=== PATIENT | female | born 1965 | race African-American/Black ===

== ENCOUNTER 2016-08-21 21:03 | Emergency (ER) | payer OTHER ==
--- NOTE | 2016-08-21 21:39 | ER Document Report ---
ED Medical Screen (RME) - General Stated Complaint: ABNORMAL LABS Time seen by provider: 21:35 Mode of Arrival: Ambulatory Information source: Patient Notes: 51 yo female with 3 month history of nausea and increasing liver enzymes now has yellow eyes and increased nausea. She's had a 10 pound weight loss in 3 months. Her father had liver cancer and her 1/2 sister of liver cancer. Occasional wine. No history of hepatitis and that has not been drawn yet. No abdominal imaging has been done. Her primary care doctor cannot feel an enlarged liver. Cholecystectomy 5 years ago and appendectomy 2004. I have greeted and performed a rapid initial assessment of this patient. A comprehensive ED assessment, evaluation of the patient, analysis of test results , and completion of the medical decision making process will be contacted by additional ED providers. TRAVEL OUTSIDE OF THE [place] IN LAST 30 DAYS: No - Related Data Allergies/Adverse Reactions: BRENDAN Inhibitors [Brendan Inhibitors] Allergy (Severe, Verified 08/21/16 21:33) Severe cough ACEINHIBITORS [BRENDAN Inhibitors] Allergy (Severe, Verified 08/21/16 21:33) Severe cough erythromycin base [Erythromycin Base] Allergy (Severe, Verified 08/21/16 21:33) Shortness of Breath, Hives, N&V Macrolide Antibiotics Allergy (Severe, Verified 08/21/16 21:33) Hives, N&V, diarrhea Past Medical History - Past Medical History Cardiac Medical History: Reports: Hx Hypercholesterolemia, Hx Hypertension - Hx of but No meds x 3 yr Denies: Hx Coronary Artery Disease, Hx Heart Attack Pulmonary Medical History: Reports: Hx Bronchitis - x3 yrs ago Denies: Hx Asthma, Hx COPD, Hx Pneumonia Neurological Medical History: Denies: Hx Cerebrovascular Accident, Hx Seizures Endocrine Medical History: Reports: Hx Diabetes Mellitus Type 2 Musculoskeltal Medical History: Denies Hx Arthritis Past Surgical History: Reports: Hx Appendectomy, Hx Cholecystectomy, Hx Hysterectomy, Hx Kidney (Renal Surgery) - donated kidney, Hx Orthopedic Surgery - left knee, Hx Tonsillectomy. Denies: Hx Pacemaker - Immunizations Hx Diphtheria, Pertussis, Tetanus Vaccination: Yes - 09/2008 after dog bite - ? Tetanus only
[2016-08-21 22:05] LABS: ABSOLUTE BASOPHILS # (AUTO) 0.1 10^3/uL (0.0-0.2); ABSOLUTE EOSINOPHILS # (AUTO) 0.7 10^3/uL (0.0-0.6); ABSOLUTE LYMPHOCYTES (AUTO) 2.1 10^3/uL (0.5-4.7); ABSOLUTE MONOCYTES (AUTO) 0.9 10^3/uL (0.1-1.4); ABSOLUTE NEUT (AUTO) 3.6 10^3/uL (1.7-8.2); BASOPHILS % (AUTO) 0.8 % (0-2); EOSINOPHILS % (AUTO) 9.6 % (0-6); HEMATOCRIT 43.5 % (36.0-47.0); HEMOGLOBIN 14.4 g/dL (12.0-15.5); HGB HCT DIFFERENCE -0.3; LYMPHOCYTES % (AUTO) 28.1 % (13-45); MEAN CORPUSCULAR HEMOGLOBIN 31.2 pg (27.0-33.4); MEAN CORPUSCULAR HGB CONC 33.2 g/dL (32.0-36.0); MEAN CORPUSCULAR VOLUME 94 fl (80-97); MONOCYTES % (AUTO) 12.7 % (3-13); RED BLOOD COUNT 4.64 10^6/uL (3.72-5.28); RED CELL DISTRIBUTION WIDTH 14.6 % (11.5-14.0); SEGMENTED NEUTROPHILS % (AUTO) 48.8 % (42-78); WHITE BLOOD COUNT 7.3 10^3/uL (4.0-10.5)
[2016-08-21 22:09] LABS: APPEARANCE,URINE SLIGHTLY-CLOUDY; BILIRUBIN,URINE NEGATIVE (NEGATIVE); GLUCOSE, URINE NEGATIVE (NEGATIVE); KETONES,URINE NEGATIVE (NEGATIVE); LEUKOCYTE ESTERASE,URINE TRACE (NEGATIVE); NITRITE,URINE NEGATIVE (NEGATIVE); PROTEIN,URINE NEGATIVE (NEGATIVE)
[2016-08-21 22:16] LABS: ALBUMIN 4.5 g/dL (3.5-5.0); ALKALINE PHOSPHATASE 128 U/L (38-126); ANION GAP 8 (5-19); BILIRUBIN,DIRECT 1.6 mg/dL (0.0-0.3); BILIRUBIN,TOTAL 4.5 mg/dL (0.2-1.3); BLOOD UREA NITROGEN 8 mg/dL (7-20); CALCIUM 9.9 mg/dL (8.4-10.2); CARBON DIOXIDE 31 mmol/L (22-30); CHLORIDE 103 mmol/L (98-107); CREATININE RESULT 0.69 mg/dL (0.52-1.25); GLUCOSE 122 mg/dL (75-110); LIPASE 1059.4 U/L (23-300); POTASSIUM 3.6 mmol/L (3.6-5.0); SODIUM 142.1 mmol/L (137-145); TOTAL PROTEIN 7.7 g/dL (6.3-8.2)
[2016-08-21 22:45] LABS: ALANINE AMINOTRANSFERASE 2919 U/L (9-52); ASPARTATE AMINO TRANSFERASE 1378 U/L (14-36)
[2016-08-21] MEDS ORDERED: MORPHINE SULFATE 10 MG/ML INJ IV ONE ×2 (23:18)
[2016-08-21] MEDS ORDERED: PROMETHAZINE HCL INJ 25 MG/1 ML VIAL IM ONE (23:18)
--- NOTE | 2016-08-21 23:21 | ER Document Report ---
ED GI/ - General Chief Complaint: Abnormal Lab Results Stated Complaint: ABNORMAL LABS Time seen by provider: 23:15 Mode of Arrival: Ambulatory Notes: Patient is a 51-year-old female that comes emergency department for chief complaint of nausea, yellow eyes, pain in her right to upper abdomen. Patient states that she had abnormal liver enzymes and was planning to follow-up with her primary care Dr. Hightower for additional workup, she was told that if she developed new symptoms to come to emergency department. Symptoms started today. Patient denies fever, vomiting, reports normal bowel movements. Past medical history of type II diabetes, hypertension, cholecystectomy, appendectomy. Patient states that her father from pancreatic cancer. TRAVEL OUTSIDE OF THE [place] IN LAST 30 DAYS: No - Related Data Allergies/Adverse Reactions: BRENDAN Inhibitors [Brendan Inhibitors] Allergy (Severe, Verified 08/21/16 23:11) Severe cough ACEINHIBITORS [BRENDAN Inhibitors] Allergy (Severe, Verified 08/21/16 23:11) Severe cough erythromycin base [Erythromycin Base] Allergy (Severe, Verified 08/21/16 23:11) Shortness of Breath, Hives, N&V Macrolide Antibiotics Allergy (Severe, Verified 08/21/16 23:11) Hives, N&V, diarrhea Home Medications: Current Home Medications Venlafaxine HCl [Venlafaxine HCl ER] 37.5 mg PO DAILY 08/21/16 [History] Past Medical History - General Information source: Patient - Social History Smoking Status: Never Smoker Frequency of alcohol use: None Drug Abuse: None Lives with: Family Family History: Reviewed & Not Pertinent - Past Medical History Cardiac Medical History: Reports: Hx Hypercholesterolemia, Hx Hypertension - Hx of but No meds x 3 yr Denies: Hx Coronary Artery Disease, Hx Heart Attack Pulmonary Medical History: Reports: Hx Bronchitis - x3 yrs ago Denies: Hx Asthma, Hx COPD, Hx Pneumonia Neurological Medical History: Denies: Hx Cerebrovascular Accident, Hx Seizures Endocrine Medical History: Reports: Hx Diabetes Mellitus Type 2 Renal/ Medical History: Denies: Hx Peritoneal Dialysis Musculoskeltal Medical History: Denies Hx Arthritis Past Surgical History: Reports: Hx Appendectomy, Hx Cholecystectomy, Hx Hysterectomy, Hx Kidney (Renal Surgery) - LEFT donated kidney, Hx Orthopedic Surgery - left knee, Hx Tonsillectomy. Denies: Hx Pacemaker - Immunizations Hx Diphtheria, Pertussis, Tetanus Vaccination: Yes - 09/2008 after dog bite - ? Tetanus only Review of Systems - Review of Systems Constitutional: No symptoms reported EENT: No symptoms reported Cardiovascular: No symptoms reported Respiratory: No symptoms reported Gastrointestinal: See HPI Genitourinary: No symptoms reported Female Genitourinary: No symptoms reported Musculoskeletal: No symptoms reported Skin: No symptoms reported Hematologic/Lymphatic: No symptoms reported Neurological/Psychological: No symptoms reported Physical Exam - Vital signs Vitals: Resp Pulse Ox 15 99 08/21/16 23:08 08/21/16 23:08 Interpretation: Normal - General General appearance: Anxious In distress: None - Patient appears to be nervous but does not appear to be in any severe distress - HEENT Head: Normocephalic, Atraumatic Eyes: Normal Pupils: PERRL - Respiratory Respiratory status: No respiratory distress Chest status: Nontender Breath sounds: Normal Chest palpation: Normal - Cardiovascular Rhythm: Regular Heart sounds: Normal auscultation Murmur: No - Abdominal Inspection: Normal Distension: No distension Bowel sounds: Normal Tenderness: Tender - There is tenderness in the epigastric and right upper quadrant, otherwise unremarkable abdomen Organomegaly: No organomegaly - Back Back: Normal, Nontender - Extremities General upper extremity: Normal inspection, Nontender, Normal color, Normal ROM , Normal temperature General lower extremity: Normal inspection, Nontender, Normal color, Normal ROM , Normal temperature, Normal weight bearing. No: Guera's sign - Neurological Neuro grossly intact: Yes Cognition: Normal Orientation: AAOx4 [place] Coma Scale Eye Opening: Spontaneous [place] Coma Scale Verbal: Oriented [place] Coma Scale Motor: Obeys Commands Ekta Coma Scale Total: 15 Speech: Normal Motor strength normal: LUE, RUE, LLE, RLE Sensory: Normal - Psychological Associated symptoms: Normal affect, Normal mood - Skin Skin Temperature: Warm Skin Moisture: Dry Skin Color: Normal Course - Re-evaluation Re-evalutation: Patient with tenderness in the upper abdomen, CBC unremarkable, LFTs significantly elevated, lipase elevated, bilirubin elevated, alkaline phosphatase elevated. Concerning for obstructive pathology. Ultrasound performed, shows no acute abnormalities. Discussed with Dr. Blanchard per [facility] guidelines. We do not have gastroenterology medication assistant this weekend. Recommends transfer. Patient very agreeable with this. Patient feeling much better after pain medication. Giving dose of Invanz. Called transfer center, pending call back. 08/22/[address] transfer center, delay because of ill patient that hospitalist is taking care of. 08/22/[address] Loya. Patient will be accepted to [facility]. She requests a CAT scan be performed additionally will patient is waiting. CAT scan was performed, shows no acute abnormality. 08/22/16 0505 Transfer team is here, patient reevaluated bedside again, patient requesting small amount of pain medication but otherwise has no complaints. Vital signs stable. Patient is well-appearing. Stable for discharge. - Vital Signs Vital signs: Temp Pulse Resp BP Pulse Ox 98.2 F 69 21 H 161/90 H 98 08/22/16 04:34 08/22/16 01:15 08/22/16 04:15 08/22/16 04:15 08/22/16 04:15 - Laboratory Result Diagrams: 08/21/16 21:45 08/21/16 21:45 Laboratory results interpreted by me: 08/21/16 08/21/16 08/21/16 21:45 21:45 21:45 RDW 14.6 H Eosinophils % 9.6 H Absolute Eosinophils 0.7 H Carbon Dioxide 31 H Glucose 122 H Total Bilirubin 4.5 H Direct Bilirubin 1.6 H AST 1378 H ALT 2919 H Alkaline Phosphatase 128 H Lipase 1059.4 H Urine Blood SMALL H Urine Urobilinogen 4.0 H Ur Leukocyte Esterase TRACE H Discharge - Discharge Clinical Impression: Elevated LFTs, Elevated bilirubin Abdominal pain Qualifiers: Abdominal location: epigastric Qualified Code(s): R10.13 - Epigastric pain Pancreatitis Qualifiers: Chronicity: acute Pancreatitis type: unspecified pancreatitis type Acute pancreatitis complication: unspecified Qualified Code(s): K85.90 - Acute pancreatitis without necrosis or infection, unspecified Condition: Stable Disposition: [facility] Referrals: SREE RAMIREZ MD [Primary Care Provider] - Follow up as needed
[2016-08-21] MEDS ORDERED: PROMETHAZINE HCL INJ 25 MG/1 ML VIAL ONE (23:29)
[2016-08-22] MEDS ORDERED: NORMAL SALINE 1000 ML 1,000 ML IV ONE (00:44)
[2016-08-22] MEDS ORDERED: MORPHINE SULFATE 10 MG/ML INJ IV ONE ×2 (00:44→05:03)
[2016-08-22] MEDS ORDERED: ERTAPENEM SODIUM INJ 1 GM VIAL IV ONE (00:44)
[2016-08-22] MEDS ORDERED: NORMAL SALINE 1000 ML 1,000 ML IV PRN (02:55)
[2016-08-22 04:34] VITALS: BP 161/90
[2016-08-22] MEDS ORDERED: MORPHINE SULFATE 10 MG/ML INJ ONE (05:06)
== END 2016-08-22 05:10 | disposition short-term general hospital (02) ==
LOC: ER 21:03
DX: K85.90 Acute pancreatitis without necrosis or infection, unspecified (principal); R10.816 Epigastric abdominal tenderness; R10.811 Right upper quadrant abdominal tenderness; R79.89 Other specified abnormal findings of blood chemistry; R74.8 Abnormal levels of other serum enzymes; R11.0 Nausea; E11.9 Type 2 diabetes mellitus without complications; I10 Essential (primary) hypertension; Z90.49 Acquired absence of other specified parts of digestive tract; Z80.0 Family history of malignant neoplasm of digestive organs; Z88.8 Allergy status to other drugs, medicaments and biological substances; Z88.1 Allergy status to other antibiotic agents; Z90.5 Acquired absence of kidney; Z90.710 Acquired absence of both cervix and uterus
CPT/HCPCS: 96376; 99285; 96372; 96361; 96375; 96365; 36415; 87086; 83690; 85025; 80053; 81001; 76705; 74177; J2270 ×2; J2550; J7030

== ENCOUNTER 2016-12-23 07:17 | Day surgery (SDC) | payer OTHER ==
--- NOTE | 2016-12-17 12:04 | HISTORY AND PHYSICAL E ---
History and Physical NAME: MARY SCHMIDT : 1965 AGE: 51Y ADMITTED: 12/23/2016 ROOM: Admit for the OR on 12/23/2016 for colonoscopy. MEDICATIONS: 1. Lisinopril. 2. Vitamin D. 3. Ambien. The patient presented regarding colonoscopy. The patient was seen 11/10/2016. She does have a history of pancreatitis, abdominal pain. The patient has a history of polyps. She is here for colon screening, adenoma polyp cecum. The patient was seen 2014. PAST SURGICAL HISTORY: 1. Appendectomy. 2. Hysterectomy. 3. She did donate her left kidney to her mom in 2000. SOCIAL HISTORY: . Does not drink except socially. She is a rare smoker. ALLERGIES: ERYTHROMYCIN. FAMILY HISTORY: Father is alive. Mom is alive. REVIEW OF SYSTEMS: CARDIAC: Hypertension. ENDOCRINE: Negative. GASTROINTESTINAL: History of polyp in the cecum. PHYSICAL EXAMINATION: VITAL SIGNS: Blood pressure 130/90, pulse 80, respirations 18, temp is 98. HEAD, EYES, EARS, NOSE AND THROAT: Normal. ABDOMEN: Soft. NEUROLOGICAL: Exam negative. The patient did have previous colon showing hyperplastic polyp descending colon. She did have colonoscopy 2011. The patient did have a 3 mm cecal polyp in the orifice of the appendix. At this time for followup colonoscopy. Again, colon exam showed 2 mm polyp sigmoid. She did have polyp seen in the appendix and 2 mm polyp in the cecum. CONCLUSIONS: Cecal polyp. PLAN: Colonoscopy. DICTATING PHYSICIAN: LYNDSAY HANNON M.D. [id number] Y#: [id number] ID: [id number] JOB#: [id number] ACCT: [id number] cc:SREE RAMIREZ M.D., MAHMOUD M.D. >
[~2016-12-23 07:17] MED LIST: LACTATED RINGERS 1000 ML IV PRN; LIDOCAINE 0.5% INJ-PF (5 MG/ML) 50 ML SDV SUBCUT PRN
[2016-12-23] MEDS ORDERED: PROPOFOL INJ 200 MG/20 ML VIAL IV ONE (08:26)
[2016-12-23] MEDS ORDERED: GLUCAGON,HUMAN RECOMB 1 MG INJ ONE (09:00)
[2016-12-23] MEDS ORDERED: LIDOCAINE 2% JELLY 30 ML TUBE ONE (09:00)
[2016-12-23] MEDS ORDERED: DIPHENHYDRAMINE HCL 50 MG/ML VIAL IV PRN (09:45)
[2016-12-23] MEDS ORDERED: FENTANYL CITRATE INJ/PF 100 MCG/2 ML AMPUL IV PRN ×3 (09:45)
[2016-12-23] MEDS ORDERED: PROMETHAZINE HCL 25 MG TABLET PO ONE (11:00)
[2016-12-23 12:45] VITALS: BP 148/88
--- NOTE | 2016-12-23 15:13 | OPERATIVE REPORT E ---
Operative Report NAME: MARY SCHMIDT : 1965 AGE: 51Y DATE OF SURGERY: 12/23/2016 ROOM: PREOPERATIVE DIAGNOSES: 1. COLON SCREENING. 2. REMOTE HISTORY OF POLYP IN THE CECUM. OPERATION: Colonoscopy. SURGEON: LYNDSAY HANNON M.D. ANESTHESIA: Done in the OR with anesthesia standby. TISSUE REMOVED OR ALTERED: Colon exam to the cecum and biopsy polyp in the cecum adjacent to the orifice of the appendix. PROCEDURE: Rectal exam normal. Sigmoid descending colon normal. Transverse colon normal. Ascending colon normal. Cecum fairly visualized and there was a small 2 mm polyp adjacent to the appendix. Biopsy obtained cecal polyp. Scope withdrawn cecum, ascending, transverse, descending, sigmoid all the way to the rectum. CONCLUSIONS: A 2 mm polyp cecum removed by biopsy. PLAN: Hold aspirin, nonsteroidal 3 days, soft diet for 2 days. Awaiting biopsy results. Consider followup colonoscopy after 3 years. DICTATING PHYSICIAN: LYNDSAY HANNON M.D. [id number] PHY#: [id number] ID: [id number] JOB#: [id number] ACCT: [id number] cc:SREE RAMIREZ M.D., MAHMOUD M.D. >
--- NOTE | 2016-12-24 07:12 | DISCHARGE SUMMARY E ---
Discharge Summary NAME: MARY SCHMIDT : 1965 AGE: 51Y ADMITTED: 12/23/2016 DISCHARGED: 12/23/2016 HISTORY: The patient is a 51-year-old female presented for colon screening, more history of polyp in the cecum adjacent to the appendix. Today's colonoscopy done in the OR with anesthesia standby, complete evaluation of the colon shows no evidence of malignancy. A small polyp, 2 mm in the orifice of the appendix was visualized and removed. The patient does have a remote history of adenoma polyp cecum in 2014. Today's colonoscopy was successful to the cecum. A small polyp 2 mm was seen adjacent to the appendix, removed by biopsy. PLAN: Awaiting biopsy results. Consideration followup colonoscopy 3 years. DISCHARGE PLAN: Soft diet, hold aspirin 3 days. The patient is see us in the office in the next few days. DICTATING PHYSICIAN: LYNDSAY HANNON M.D. [id number] PHY#: [id number] ID: [id number] JOB#: [id number] ACCT: [id number] cc:SREE RAMIREZ M.D., MAHMOUD M.D. >
== END 2016-12-23 12:05 | disposition home or self-care (01) ==
LOC: OROUT 07:17
PROVIDERS: ATTEND Specialist
PROC: 0DBH8ZX Excision of Cecum, Via Natural or Artificial Opening Endoscopic, Diagnostic (ICD-10-PCS; principal; 2016-12-23 09:30)
DX: Z12.11 Encounter for screening for malignant neoplasm of colon (principal); D12.0 Benign neoplasm of cecum; I10 Essential (primary) hypertension; F17.210 Nicotine dependence, cigarettes, uncomplicated; Z79.899 Other long term (current) drug therapy; Z88.1 Allergy status to other antibiotic agents
CPT/HCPCS: 45380; 82962; 88305 ×2; J1610; J2704; 810

== ENCOUNTER → 2018-08-15 | Outpatient (CLI) | payer OTHER ==
--- NOTE | 2018-08-15 15:52 | WOMENS IMAGING REPORT ---
EXAM DESCRIPTION: BILAT SCREENING MAMMO W/CAD COMPLETED DATE/TIME: 08/15/2018 1:54 pm REASON FOR STUDY: ROUTINE BILATERAL SCREENING, Z12.31Z12.31 ENCNTR SCREEN MAMMOGRAM FOR MALIGNANT N EOPLASM OF ALEJANDRA COMPARISON: 2013 to 2016 TECHNIQUE: Standard craniocaudal and mediolateral oblique views of each breast recorded using Liquid Air Laba l acquisition. LIMITATIONS: None. FINDINGS: RIGHT BREAST MASSES: 9 mm oval smooth mass 9 o'clock 9 cm from the nipple CALCIFICATIONS: No new or suspicious calcifications. ARCHITECTURAL DISTORTION: None. DEVELOPING DENSITY: None. ASYMMETRY: None noted. OTHER: No other significant findings. LEFT BREAST MASSES: No suspicious masses. CALCIFICATIONS: No new or suspicious calcifications. ARCHITECTURAL DISTORTION: None. DEVELOPING DENSITY: None. ASYMMETRY: None noted. OTHER: No other significant findings. Read with the assistance of CAD. .[facility] - R2 Cenova Version 1.3 .[facility] Imaging - R2 Cenova Version 1.3 .[facility] Imaging - R2 Cenova Version 2.4 .[facility] - R2 Cenova Version 2.4 .[facility] - R2 Cold Molding Press Operator Version 9.2 IMPRESSION: Mass in the right breast BREAST DENSITY: b. There are scattered areas of fibroglandular density. BIRAD: 0 Incomplete: Needs Additional Imaging Evaluation and/or prior Mammograms for Comparison. RECOMMENDATION: RECOMMENDED FOLLOW-UP: Spot compression and ultrasound. The patient will be contacted for additional imaging. COMMENT: The patient has been notified of the results by letter per SA requirements. Additional no tification policies are in place for contacting patient with suspicious or incomplete findings. Quality ID #225: The [employer] recommends an annual screening mammogram for women aged 40 years or over. This facility utilizes a reminder system to ensure that all patients receive reminder letters, and/or direct phone calls for appointments. This includes reminders for routine scr eening mammograms, diagnostic mammograms, or other Breast Imaging Interventions when appropriate. Th is patient will be placed in the appropriate reminder system. The [employer] (ACR) has developed recommendations for screening MRI of the breast s in certain patient populations, to be used in conjunction with mammography. Breast MRI surveillanc e may be appropriate for women with more than 20% lifetime risk of developing breast cancer as deter mined by genetic testing, significant family history of the disease, or history of mantle radiation f or Hodgkins Disease. ACR Practice Guidelines 2008. TECHNICAL DOCUMENTATION: FINDING NUMBER: (1) ASSESSMENT: (1) JOB ID: [id number] [employer]- All Rights Reserved Reading location - IP/workstation name: [email or web address]
== END ==
LOC: WI 13:34
PROVIDERS: ATTEND Internal Medicine
DX: Z12.31 Encounter for screening mammogram for malignant neoplasm of breast (principal)
CPT/HCPCS: 77067

== ENCOUNTER → 2018-08-23 | Outpatient (CLI) | payer OTHER ==
--- NOTE | 2018-08-23 13:38 | WOMENS IMAGING REPORT ---
EXAM DESCRIPTION: RIGHT DIAGNOSTIC MAMMO W/CAD; U/S BREAST UNILAT LIMITED COMPLETED DATE/TIME: 08/23/2018 8:06 am; 08/23/2018 8:42 am REASON FOR STUDY: R92.2,RIGHT BREAST MASS; RT BREAST R92.2 R92.2 INCONCLUSIVE MAMMOGRAM COMPARISON: Multiple since 2008 TECHNIQUE: Cone compression craniocaudal and mediolateral oblique images of the breast recorded with digital acquisition. Right breast 90 mediolateral view. Right breast ultrasound was also performed LIMITATIONS: None. FINDINGS: BREAST: Right MASSES: In the right breast laterally, 2 benign intramammary lymph nodes are present less than a cm i n size. These contain central hilar fat. CALCIFICATIONS: No new or suspicious calcifications. ARCHITECTURAL DISTORTION: None. DEVELOPING DENSITY: None. ASYMMETRY: None noted. OTHER: No other significant findings. Read with the assistance of CAD. .[facility] - R2 Cenova Version 1.3 .[facility] Imaging - R2 Cenova Version 2.1 .[facility] Imaging - R2 Cenova Version 2.4 .[facility] - R2 Cenova Version 2.4 .[facility] - R2 Publishing Director Version 9.2 Right breast ultrasound: In lateral right breast 9 o'clock position, there are 2 benign-appearing intramammary lymph nodes, 8 x 5 mm in size and 5 x 5 mm in size. No worrisome features IMPRESSION: No mammographic or sonographic evidence for malignancy right breast BREAST DENSITY: b. There are scattered areas of fibroglandular density. BIRAD: 2 Benign findings. RECOMMENDATION: RECOMMENDED FOLLOW UP: Please continue yearly bilateral screening mammography/ tomos ynthesis in July 2019 SPECIFIC INTERVENTION/IMAGING/CONSULTATION RECOMMENDED:No additional intervention/ imaging/consultati on needed at this time. COMMUNICATION:The negative/benign results were communicated to the patient. COMMENT: The patient has been notified of the results by letter per SA requirements. Additional no tification policies are in place for contacting patient with suspicious or incomplete findings. Quality ID #225: The [employer] recommends an annual screening mammogram for women aged 40 years or over. This facility utilizes a reminder system to ensure that all patients receive reminder letters, and/or direct phone calls for appointments. This includes reminders for routine scr eening mammograms, diagnostic mammograms, or other Breast Imaging Interventions when appropriate. Th is patient will be placed in the appropriate reminder system. The [employer] (ACR) has developed recommendations for screening MRI of the breast s in certain patient populations, to be used in conjunction with mammography. Breast MRI surveillanc e may be appropriate for women with more than 20% lifetime risk of developing breast cancer as deter mined by genetic testing, significant family history of the disease, or history of mantle radiation f or Hodgkins Disease. ACR Practice Guidelines 2008. TECHNICAL DOCUMENTATION: FINDING NUMBER: (1) ASSESSMENT: (1) JOB ID: [id number] [employer]- All Rights Reserved Reading location - IP/workstation name: [email or web address]
--- NOTE | 2018-08-23 13:38 | WOMENS IMAGING REPORT ---
EXAM DESCRIPTION: RIGHT DIAGNOSTIC MAMMO W/CAD; U/S BREAST UNILAT LIMITED COMPLETED DATE/TIME: 08/23/2018 8:06 am; 08/23/2018 8:42 am REASON FOR STUDY: R92.2,RIGHT BREAST MASS; RT BREAST R92.2 R92.2 INCONCLUSIVE MAMMOGRAM COMPARISON: Multiple since 2008 TECHNIQUE: Cone compression craniocaudal and mediolateral oblique images of the breast recorded with digital acquisition. Right breast 90 mediolateral view. Right breast ultrasound was also performed LIMITATIONS: None. FINDINGS: BREAST: Right MASSES: In the right breast laterally, 2 benign intramammary lymph nodes are present less than a cm i n size. These contain central hilar fat. CALCIFICATIONS: No new or suspicious calcifications. ARCHITECTURAL DISTORTION: None. DEVELOPING DENSITY: None. ASYMMETRY: None noted. OTHER: No other significant findings. Read with the assistance of CAD. .[facility] - R2 Cenova Version 1.3 .[facility] Imaging - R2 Cenova Version 2.[address] Imaging - R2 Cenova Version 2.4 .[facility] - R2 Cenova Version 2.4 .[facility] - R2 Sandblaster Supervisor Version 9.2 Right breast ultrasound: In lateral right breast 9 o'clock position, there are 2 benign-appearing intramammary lymph nodes, 8 x 5 mm in size and 5 x 5 mm in size. No worrisome features IMPRESSION: No mammographic or sonographic evidence for malignancy right breast BREAST DENSITY: b. There are scattered areas of fibroglandular density. BIRAD: 2 Benign findings. RECOMMENDATION: RECOMMENDED FOLLOW UP: Please continue yearly bilateral screening mammography/ tomos ynthesis in July 2019 SPECIFIC INTERVENTION/IMAGING/CONSULTATION RECOMMENDED:No additional intervention/ imaging/consultati on needed at this time. COMMUNICATION:The negative/benign results were communicated to the patient. COMMENT: The patient has been notified of the results by letter per SA requirements. Additional no tification policies are in place for contacting patient with suspicious or incomplete findings. Quality ID #225: The [employer] recommends an annual screening mammogram for women aged 40 years or over. This facility utilizes a reminder system to ensure that all patients receive reminder letters, and/or direct phone calls for appointments. This includes reminders for routine scr eening mammograms, diagnostic mammograms, or other Breast Imaging Interventions when appropriate. Th is patient will be placed in the appropriate reminder system. The [employer] (ACR) has developed recommendations for screening MRI of the breast s in certain patient populations, to be used in conjunction with mammography. Breast MRI surveillanc e may be appropriate for women with more than 20% lifetime risk of developing breast cancer as deter mined by genetic testing, significant family history of the disease, or history of mantle radiation f or Hodgkins Disease. ACR Practice Guidelines 2008. TECHNICAL DOCUMENTATION: FINDING NUMBER: (1) ASSESSMENT: (1) JOB ID: [id number] [employer]- All Rights Reserved Reading location - IP/workstation name: [email or web address]
== END ==
LOC: WI 07:52
PROVIDERS: ATTEND Internal Medicine
DX: R92.2 Inconclusive mammogram (principal)
CPT/HCPCS: 76642

== ENCOUNTER → 2018-10-04 | Outpatient (CLI) | payer OTHER ==
[~2018-10-04] MED LIST changes: -LACTATED RINGERS 1000 ML IV PRN; -LIDOCAINE 0.5% INJ-PF (5 MG/ML) 50 ML SDV SUBCUT PRN; +REGADENOSON INJ 0.4 MG/5 ML DISP.SYRIN IV ONE
--- NOTE | 2018-10-06 00:38 | DRAGON STRESS TEST REPORT ---
Intravenous Lexiscan Cardiolite stress test using single photon emmision computerized tomography. Date of procedure: 10/04/2018. Ordering Provider: Dr. Rob Lambert. Patient's status: Out Patient. Indication: Chest pain. Coronary risk factors: Age, diabetes mellitus, and hypertension. Resting EKG: Sinus Rhythm. Within Normal Limits. The patient had no chest pain or discomfort, and there was no arrhythmias seen. Stress EKG: No changes of ischemia. Reason for termination: Protocol. Conclusions: Normal EKG and hemodynamic response to IV Lexiscan. Nuclear data: At rest the patient was given 14.35 millicuries of technetium 99m sestamibi injected intravenously. As per protocol rest non gated SPECT images were obtained. Subsequently the patient was given intravenous Lexiscan at a dose of 0.4 mg in 5 mL intravenously, followed by flush with normal saline. Subsequently the stress dose of 41.3 millicuries of technetium 99m sestamibi was injected intravenously. As per protocol stress gated images were obtained. Nuclear interpretation: Review of images showed that there was liver and bowel contamination artifact of the inferior wall, and breast attenuation artifact of the anterior wall. This is a difficult study to interpret. In spite of this all segments of the myocardium had normal perfusion at rest, and normal perfusion post stress with IV Lexiscan. All segments of the myocardium had normal motion, contraction, and thickening by gated study. T. I D. ratio was normal at 0.90. There is no transient ischemic dilatation of the left ventricle. Computer read rest, and stress left ventricular ejection fraction were 68 %, and 68 %, respectively. Conclusion: 1. There is no scintigraphic evidence of Lexiscan induced myocardial ischemia. 2. There is no scintigraphic evidence of myocardial infarction/scar. Recommendations: Aggressive risk factor modification, and treating the underlying co- morbidities. [facility]
== END ==
LOC: RAD 06:51
PROVIDERS: ATTEND Internal Medicine
DX: R07.2 Precordial pain (principal)
CPT/HCPCS: 93017; 78452; A9500; J2785

== ENCOUNTER → 2019-08-16 | Outpatient (CLI) | payer OTHER ==
--- NOTE | 2019-08-16 12:49 | WOMENS IMAGING REPORT ---
EXAM DESCRIPTION: BONE DENSITY HIP/SPINE COMPLETED DATE/TIME: 08/16/2019 10:01 am REASON FOR STUDY: M81.8 BONE DENSITY Z12.31 ENCNTR SCREEN MAMMOGRAM FOR MALIGNANT NEOPLASM OF ALEJANDRA M 81.8 OTHER OSTEOPOROSIS WITHOUT CURRENT PATHOLOGICAL FRACTU COMPARISON: 11/26/2013 06/24/2009 07/01/2005 TECHNIQUE: Dual-Energy X-ray Absorptiometry (DEXA) of the AP Spine and Hip. LIMITATIONS: None. FINDINGS: LUMBAR SPINE: The bone mineral density (BMD) measured from L1-L4 in the AP projection correlates with a T-score of -0.7, which is normal as defined by the World Health Organization. BMD Change vs Baseline: +5.3% HIP: The bone mineral density (BMD) measured in the left hip correlates with a T-score of -0.8 in the femo ral neck, which is normal as defined by the World Health Organization. BMD Change vs Baseline: +8.9% 10 year Fracture Risk Assessment: Major Osteoporotic Fracture: Not available. Hip Fracture: Not available. IMPRESSION: 1. LUMBAR SPINE WHO CLASSIFICATION: Normal 2. HIP WHO CLASSIFICATION: Normal OVERALL ASSESSMENT: WHO CLASSIFICATION: Normal COMMENT: The World Health Organization defines low BMD as follows: T-score: Normal: Greater than -1.0 Osteopenia: Between -1.0 and -2.5 Osteoporosis: Less than -2.5 without fractures Established osteoporosis: Less than -2.5 with fractures In general, you may wish to consider: Diagnosis Treatment Follow-up DEXA Normal BMD Prevention 2-3 years Osteopenia Prevention/Therapy 1-2 years Osteoporosis Therapy Yearly TECHNICAL DOCUMENTATION: JOB ID: [id number]- All Rights Reserved Reading location - IP/workstation name: [email or web address]
--- NOTE | 2019-08-16 13:11 | WOMENS IMAGING REPORT ---
EXAM DESCRIPTION: BILAT SCREENING MAMMO W/CAD COMPLETED DATE/TIME: 08/16/2019 10:01 am REASON FOR STUDY: Z12.31 SCREENING MAMMO Z12.31 ENCNTR SCREEN MAMMOGRAM FOR MALIGNANT NEOPLASM OF B RE M81.8 OTHER OSTEOPOROSIS WITHOUT CURRENT PATHOLOGICAL FRACTU COMPARISON: 08/15/2018 and 05/19/2017. EXAM PARAMETERS: Standard craniocaudal and mediolateral oblique views of each breast recorded using digital acquisition. Read with the assistance of CAD. .[facility] - Remote Sensing Program Manager Version 9.2 LIMITATIONS: None. FINDINGS: Findings present which are benign by mammographic criteria. No suspicious masses, calcifi cations or architectural distortion. Pertinent benign findings: Stable small masses in the right breast. Benign mammographic findings may include one or more of the following: Smooth masses, popcorn/rim/co arse calcifications, asymmetries, post-procedure changes, and lesions with long-standing stability. IMPRESSION: BENIGN MAMMOGRAPHIC FINDINGS. BIRADS 2 BREAST DENSITY: a. The breasts are almost entirely fatty. BIRAD: ASSESSMENT: 2 BENIGN FINDING(S) RECOMMENDATION: ROUTINE SCREENING COMMENT: The patient has been notified of the results by letter per SA requirements. Additional no tification policies are in place for contacting patient with suspicious or incomplete findings. Quality ID #[id number]: The [employer] recommends an annual screening mammogram for women aged 40 years or over. This facility utilizes a reminder system to ensure that all patients receive reminder letters, and/or direct phone calls for appointments. This includes reminders for routine scr eening mammograms, diagnostic mammograms, or other Breast Imaging Interventions when appropriate. Th is patient will be placed in the appropriate reminder system. TECHNICAL DOCUMENTATION: FINDING NUMBER: (1) ASSESSMENT: (1) JOB ID: [id number] [employer] All Rights Reserved Reading location - IP/workstation name: [facility]-[email or web address]
== END ==
LOC: WI 09:05
PROVIDERS: ATTEND Physician Assistant
DX: Z12.31 Encounter for screening mammogram for malignant neoplasm of breast (principal); M81.8 Other osteoporosis without current pathological fracture; N63.10 Unspecified lump in the right breast, unspecified quadrant
CPT/HCPCS: 77067; 77080